=== PATIENT | female | born 1970 | race Two or more races ===

== ENCOUNTER 2017-07-17 09:16 | Emergency (ER) | payer OTHER ==
[~2017-07-17] VITALS: Ht 165.1 cm; Wt 75.3 kg
[~2017-07-17 09:16] MED LIST: KETOCONAZOLE15 GM TOP
[2017-07-17] MEDS ORDERED: DICLOFENAC SODI50 MG PO (09:57)
[2017-07-17] MEDS ORDERED: DIAZEPAM10 MG PO (09:57)
== END 2017-07-17 10:18 | disposition home or self-care (01) ==
LOC: ER 09:16
DX: M54.32 Sciatica, left side (principal)

== ENCOUNTER 2018-12-24 08:49 | Emergency (ER) | payer OTHER ==
[~2018-12-24] VITALS: Ht 165.1 cm; Wt 77.1 kg
[~2018-12-24 08:49] MED LIST changes: +DIAZEPAM10 MG PO; +DICLOFENAC SODI50 MG PO
== END 2018-12-24 11:51 | disposition home or self-care (01) ==
LOC: ER 08:49
DX: R42 Dizziness and giddiness (principal)

== ENCOUNTER 2019-01-13 07:58 | Emergency (ER) | payer OTHER ==
[~2019-01-13] VITALS: Ht 165.1 cm; Wt 77.1 kg
[2019-01-13] MEDS ORDERED: AMOX-CLAV 875-1 EACH PO (08:37)
== END 2019-01-13 09:22 | disposition home or self-care (01) ==
LOC: ER 07:58
DX: J03.90 Acute tonsillitis, unspecified (principal)